=== PATIENT | female | born 1960 | race Caucasian/White ===

== ENCOUNTER 2020-08-12 20:08 | Emergency (ER) | payer BC ==
[~2020-08-12] VITALS: Ht 147.3 cm; Wt 47.2 kg
[2020-08-12 20:16] VITALS: BP 119/79
--- NOTE | 2020-08-12 21:15 | NUR ---
59 Y/O FEMALE PATIENT PRESENTS TO ED WITH EYE DISCOMFORT . PT STATES "I JUST NOTICED THAT MY EYE WAS REALLY RED". PT IS STILL ABLE TO DO 6 EYE MOVEMENT WITHOUT PAIN AND DSCOMFORT. PERRLA. DENIES N/V/D; SKIN IS PINK/WARM/DRY; AAOX4 WITH EVEN AND STEADY GAIT; LUNGS CLEAR BL; HR EVEN AND REGULAR; PT DENIES ANY FEVER, CP, SOB, OR COUGH AT THIS TIME; PATIENT STATES PAIN OF 1/10 AT THIS TIME; VSS; PATIENT POSITIONED FOR COMFORT; HOB ELEVATED; BEDRAILS UP X2; BED DOWN. ER MD MADE AWARE OF PT STATUS. PMH: DENIES NKA
--- NOTE | 2020-08-12 21:20 | NUR ---
PT TAKEN TO BED 3
[2020-08-12] MEDS ORDERED: TETR15SO92 OP (21:44)
--- NOTE | 2020-08-12 21:55 | NUR ---
Patient discharged with v/s stable. Written and verbal after care instructions given and explained. Patient alert, oriented and verbalized understanding of instructions. Ambulatory with steady gait. All questions addressed prior to discharge. ID band removed. Patient advised to follow up with PMD. Rx of visine allergy relief eye drop given. Patient educated on indication of medication including possible reaction and side effects. Opportunity to ask questions provided and answered.
[2020-08-12 21:56] VITALS: BP 119/79
== END 2020-08-12 21:55 | disposition home or self-care (01) ==
LOC: MED 20:08
DX: H11.32 Conjunctival hemorrhage, left eye (principal); Z98.890 Other specified postprocedural states
CPT/HCPCS: 99282